=== PATIENT | female | born 1990 | race Caucasian/White ===

== ENCOUNTER → 2021-12-17 14:04 | Outpatient (BNVA) | payer OTHER, SELFPAY | PROVIDERS: PCP Nurse Practitioner Primary Care; Visit Provider Physician Assistant Surgical | DX: Z13.89 Encounter for screening for other disorder (principal) ==

== ENCOUNTER → 2021-12-26 13:06 | Outpatient (BNVA) | payer OTHER, SELFPAY | PROVIDERS: PCP Nurse Practitioner Primary Care; Visit Provider Physician Assistant Surgical | DX: Z13.89 Encounter for screening for other disorder (principal) ==

== ENCOUNTER 2021-12-27 08:28 | Outpatient (REF) | payer OTHER, SELFPAY ==
[2021-12-27 08:55] LABS: MANUAL DIFF FLAG NO
[2021-12-27 09:41] LABS: Basophils Absolute Auto 0.1 X10*3/uL (0.0-0.2); Basophils Percent Auto 0.8 % (0-2); Eosinophils Absolute Auto 0.1 X10*3/uL (0.0-0.4); Eosinophils Percent Auto 1.7 % (0-4); Hematocrit 44.2 % (37.0-47.0); Imm Gran Abs Auto 0.02 X10*3/uL (0.00-0.03); Imm Gran Pct Auto 0.3 % (0.0-0.4); Lymphocytes Absolute Auto 1.7 X10*3/uL (1.2-4.9); Mean Corpuscular HGB Conc 31.7 g/dl (31.0-35.0); Mean Corpuscular Hemoglobin 25.9 pg (27.0-33.0); Mean Corpuscular Volume 81.7 fL (80.0-98.0); Mean Platelet Volume 10.3 fL (9.4-12.3); Monocytes Absolute Auto 0.4 X10*3/uL (0.1-1.2); Monocytes Percent Auto 7.2 % (2-11); Neutrophils Absolute Auto 3.7 x10*3/uL (2.0-8.3); Platelet Count 370 X10*3/uL (160-400); Red Blood Count 5.41 X10*6/uL (4.20-5.50); Red Cell Distribution Width 13.1 % (11.0-16.0)
[2021-12-27 09:46] LABS: Estimated Average Glucose 94 mg/dL; Hemoglobin A1c % 4.9 %
[2021-12-27 10:31] LABS: Alanine Aminotransferase 17 U/L (0-31); Albumin Level 3.9 g/dL (3.5-5.0); Alkaline Phosphatase 97 U/L (39-117); Anion Gap 12 (12-20); Aspartate Amino Transferase 18 U/L (5-31); Bilirubin Total 0.6 mg/dL (0.0-1.0); Blood Urea Nitrogen 14 mg/dL (9-16); C Reactive Protein 0.77 mg/dL (< or = 0.50); Calcium 9.1 mg/dL (8.4-10.2); Carbon Dioxide 26 mmol/L (22-29); Chloride 103 mmol/L (96-108); Cholesterol 177 mg/dL; Estimated Glomerular Filt Rate > 60; Glucose Random 83 mg/dL (60-115); HDL Cholesterol 46 mg/dL; Iron 114 mcg/dL (30-160); LDL Cholesterol Calculated 117 mg/dl; Percent Iron Saturation 36 % (15-50); Potassium 4.2 mmol/L (3.3-5.1); Sodium 137 mmol/L (135-145); Total Iron Binding Capacity 321 mcg/dL (228-428); Total Protein 7.3 g/dL (6.5-8.0); Triglycerides 74 mg/dL; Unsaturated Iron Binding 207 ug/dL
[2021-12-27 10:56] LABS: Ferritin 65 ng/mL (10-122); TSH reflex Free T4 1.31 uIU/mL (0.32-4.0); Vitamin D 25-OH Total 77.3 ng/mL (>30)
[2021-12-27 11:00] LABS: Folate 19.9 ng/mL (> or = 4.0); Vitamin B12 541 pg/mL (200-900)
[2021-12-27 11:27] LABS: Insulin 8 uU/mL (2-29)
[2021-12-28 12:11] LABS: Calcium (PTHI) 8.9 mg/dL (8.6-10.2); PTHI 41 pg/mL (16-77)
[2021-12-31 16:50] LABS: Zinc 71 mcg/dL (60-130)
[2022-01-02 11:32] LABS: Vitamin B1 25 nmol/L (8-30)
[2022-01-02 17:12] LABS: Vitamin A 37 mcg/dL (38-98)
== END 2021-12-27 08:29 | disposition home or self-care (01) ==
LOC: HO.LAB 08:28
PROVIDERS: PCP Nurse Practitioner Primary Care; Visit Provider Physician Assistant Surgical
DX: E66.01 Morbid (severe) obesity due to excess calories (principal)
CPT/HCPCS: 36415; 80053; 80061; 82306; 82607; 82728; 82746; 83036; 83525; 83540; 83970; 84425; 84443; 84590; 84630; 85025; 86140